=== PATIENT | female | born 1995 | race Hispanic/Latino ===

== ENCOUNTER 2021-08-14 06:38 | Observation (INO) | payer OTHER ==
[2021-08-13 10:11] LABS: Basophils # (Auto) 0.1 K/mm3 (0.0-0.1); Basophils % (Auto) 0.6 % (0.0-1.8); Eosinophils # (Auto) 0.1 K/mm3 (0.0-0.4); Eosinophils % (Auto) 1.2 % (0.0-4.3); Hematocrit 34.4 % (30.3-42.9); Hemoglobin 11.4 gm/dl (10.1-14.3); Lymphocytes # (Auto) 2.4 K/mm3 (1.2-5.4); Lymphocytes % (Auto) 23.5 % (13.4-35.0); Mean Corpuscular HGB Conc 33 % (30-34); Mean Corpuscular Volume 73 fl (79-97); Monocytes # (Auto) 0.4 K/mm3 (0.0-0.8); Monocytes % (Auto) 4.3 % (0.0-7.3); Platelet Count 352 K/mm3 (140-440); Red Blood Count 4.75 M/mm3 (3.65-5.03); Red Cell Distribution Width 17.6 % (13.2-15.2)
--- NOTE | 2021-08-13 15:57 | Anesthesia Consultation ---
Anesthesia Consult and Med Hx Date of service: 08/14/21 - Airway Anesthetic Teeth Evaluation: Crowns ROM Head & Neck: Adequate Mental/Hyoid Distance: Adequate Mallampati Class: Class II Intubation Access Assessment: Probably Good - Pre-Operative Health Status ASA Pre-Surgery Classification: ASA3 Proposed Anesthetic Plan: General Nerve Block: TAP - Pulmonary Hx Smoking: Yes - Central Nervous System Hx Neuromuscular Disorder: Yes (Knee arthritis) Hx Psychiatric Problems: Yes (Anxiety/Depression) - Gastrointestinal Hx Gastroesophageal Reflux Disease: Yes (Occasional; takes pepcid prn) - Endocrine Hx Renal Disease: Yes (Hx stones) - Other Systems Hx Alcohol Use: Yes (Occas) Hx Cancer: No Hx Obesity: Yes (Morbid)
[~2021-08-14 06:38] MED LIST: ACETAMINOPHEN 500 MG TAB PO ONE; BACTERIOSTATIC SODIUM CHLORIDE 0.9% 30 ML VIAL INFILTRATI ONE; CELECOXIB 200 MG CAP PO NR; LACTATED RINGERS 1,000 ML IV SCH; MAGNESIUM OXIDE 400 MG TAB PO ONE; MIDAZOLAM 2 MG/2 ML INJ IV NR; fentaNYL 100 MCG/2 ML INJ IV ONE; methOCARBAMOL 1,000 MG in SODIUM CHLORIDE 0.9% 250ML 250 ML IV ONE
[2021-08-14] MEDS ORDERED: SCOPOLAMINE TRANSDERMAL PATCH 72 HR TD NR (07:00)
[2021-08-14] MEDS ORDERED: LIDOCAINE MPF (2%) 20 MG/1 ML VIAL 5 ML ONE ×2 (07:22→07:28)
[2021-08-14] MEDS ORDERED: ROCURONIUM 50 MG/5 ML INJ IV ONE ×2 (07:22→08:54)
[2021-08-14] MEDS ORDERED: propofoL 200 MG/20 ML VIAL IV ONE (07:23)
[2021-08-14] MEDS ORDERED: ONDANSETRON 4 MG/2 ML INJ ONE (07:23)
[2021-08-14] MEDS ORDERED: fentaNYL 100 MCG/2 ML INJ ONE (07:23)
[2021-08-14] MEDS ORDERED: KETAMINE/STERILE WATER 50 MG/ML SYRINGE ONE (07:23)
[2021-08-14] MEDS ORDERED: SODIUM CHLORIDE 0.9% 0 ML ONE (07:24)
[2021-08-14] MEDS ORDERED: VASOPRESSIN 20 UNIT/1 ML INJ ONE (07:24)
[2021-08-14] MEDS ORDERED: SODIUM CHLORIDE P/F VIAL 10 ML 10 ML ONE (07:28)
[2021-08-14] MEDS ORDERED: dexAMETHasone 4 MG/ML VIAL ONE (07:30)
[2021-08-14] MEDS ORDERED: BUPIVACAINE/PF (0.25%) 2.5 MG/ML 30 ML VIAL INFILTRATI ONE ×2 (07:30→07:38)
--- NOTE | 2021-08-14 07:32 | Anesthesia Day of Surgery ---
Anesthesia Day of Surgery - Day of Surgery Patient Examined: Yes Patient H&P Reviewed: Yes Patient is NPO: Yes
[2021-08-14] MEDS ORDERED: MIDAZOLAM 5 MG/5 ML INJ MDV IV ONE (07:37)
[2021-08-14] MEDS ORDERED: HYDROmorphone 1 MG/1 ML INJ IV PRN (07:58)
[2021-08-14] MEDS ORDERED: CITRIC ACID-SOD CITRATE 500 ML IV ONE (08:00)
[2021-08-14] MEDS ORDERED: ePHEDrine SULFATE 50 MG/1 ML INJ ONE (08:32)
[2021-08-14] MEDS ORDERED: PHENYLEPHRINE/NS 1,000 MCG/10 ML SYRINGE (OR USE) IV ONE (08:38)
[2021-08-14] MEDS ORDERED: ONDANSETRON 4 MG/2 ML INJ IV PRN (09:00)
[2021-08-14] MEDS ORDERED: SODIUM CHLORIDE 0.9% IRR 1,500 ML BOTTLE IR ONE (09:00)
[2021-08-14] MEDS ORDERED: LACTATED RINGERS 1,000 ML ONE (09:42)
[2021-08-14] MEDS ORDERED: KETOROLAC 30 MG/1 ML INJ ONE (11:35)
[2021-08-14] MEDS ORDERED: NEOSTIGMINE 10MG/10 ML INJ MDV ONE (11:35)
[2021-08-14] MEDS ORDERED: GLYCOPYRROLATE 0.4 MG/2 ML INJ ONE ×2 (11:35)
[2021-08-14] MEDS ORDERED: HYDROcodone/ACETAMINOPHEN 5-325 MG TAB PO PRN (11:58)
[2021-08-14] MEDS ORDERED: MORPHINE 4 MG/1 ML INJ IV PRN (11:58)
[2021-08-14] MEDS ORDERED: ACETAMINOPHEN 325 MG TAB PO PRN (11:58)
--- NOTE | 2021-08-14 12:13 | Procedure Note ---
Date of procedure: 08/14/21 Pre-op diagnosis: fibroid uterus, menorrhagia Post-op diagnosis: same Procedure: This is Dr. Santana dictating operative report on the patient. Surgeon Dr. Santana. Thai Masseur Dr. Zahira Rod. Time of surgery was 3 hours. Procedure was robotic laparoscopic myomectomy. Anesthesia General with intubation. Drains Bolton. Complications none. Specimen fibroid. Estimated blood loss 100 cc. Procedure patient was taken to the OR and given a general anesthetic with intubation placed in the [facility] stirrups and prepped and draped in usual manner had an indwelling Bolton catheter we could not adequately manipulate her cervix because of her nulliparity so we placed a sponge on a stick in the vagina attention was directed towards the laparoscopy portion procedure versus skin just above the umbilicus was injected with Xylocaine. Made a small stab incision inserted Veress needle into the peritoneal cavity 2 L of carbon dioxide were used to obtain pneumoperitoneum. We then made a bigger incision inserted the 12 mm trocar under direct visualization without trauma to the pelvic abdominal structures we then placed our robotic port 7 mm in the right lower quadrant left lower quadrant under direct visualization without trauma to the pelvic structures we then docked the patient to the robot. An excess report of 5 mm was inserted in the left upper quadrant direct visualization out from no other pelvic abdominal structures through this access report we inserted the laparoscopic tenaculum. The insufflation technique for this procedure was a procedure where the pneumoperitoneum was maintained by the device external to the patient. We then docked with the robot using unipolar scissors and #1 and atraumatic grasper and #2. The tenaculum through the port was used to grasp the posterior aspect of the uterus there was a myoma on the dome and posterior aspect of the uterus we then made an incision with unipolar scissors on the posterior aspect of the uterus and we manipulated the uterus with the with a laparoscopic tenaculum until we were able to completely extract the fibroid from the posterior aspect of the uterus patient had 100 cc blood loss the specimen was placed in the lower area just behind the uterus the incision into the to the uterus was repaired with a running V lock 180 suture completely across and back 3 sutures to make sure the suture was tied into the uterus well. There was no bleeding at the end of the procedure tubes and ovaries appeared to be fine. We then undocked the patient from the robot and using Endopouch through the visual port we placed Endopouch the fibroid was then placed inside the Endopouch and removed with the help of expanding the skin incision at the elbow above the umbilicus and the fascia and removed intact in toto and sent for pathological inspection. All instruments were removed from abdominal cavity the insufflation for this procedure was however flow. See no further procedures were indicated the skin incision at just above the umbilicus for the visual port was repaired using 0 Vicryl suture to repair the fascia and subcutaneous tissue and the skin was repaired running two 4-0 Vicryl the other 4 skin incision was repaired running subcuticular 4-0 Vicryl and drape with Dermabond the sponge stick was removed from the vagina Bolton was removed from the bladder the patient tolerated procedures well the skin incision was covered with Dermabond she was then returned turned to the recovery room in stable condition end of operative note on this patient. Anesthesia: GETA Surgeon: HARPREET SANTANA Thai Masseur: ZAHIRA ROD Estimated blood loss: other (100ccs) Pathology: list Specimen disposition: to lab (myoma) Condition: stable Disposition: PACU
[2021-08-14] MEDS: HYDROmorphone 1 MG/1 ML INJ IV PRN ×2 (12:20→12:30)
--- NOTE | 2021-08-14 14:11 | Post Anesthesia Evaluation ---
- Post Anesthesia Evaluation Patient Participated: Yes Airway Patent: Yes Stable Respiratory Function: Yes Nausea/Vomiting: No Temp > 96.8F: Yes Pain Manageable: Yes Adequeate Hydration: Yes Anesthesia Complications: No Block Receding Appropriately: Yes Patient on Ventilator: No
--- NOTE | 2021-08-14 15:33 | Short Stay Summary ---
Short Stay Documentation Date of service: 08/14/21 Narrative H&P: see h&p. - History Past Medical History: No medical history Past Surgical History: No surgical history Social history: single - Allergies and Medications Current Medications: Allergies No Known Allergies Allergy (Unverified 08/10/21 15:38) Active Medications Acetaminophen (Acetaminophen 325 Mg Tab) 650 mg PO Q4H PRN PRN Reason: Pain, Mild (1-3) Hydrocodone Bitart/Acetaminophen (Hydrocodone/Acetaminophen 5-325 Mg Tab) 2 each PO Q6H PRN PRN Reason: Pain, Moderate (4-6) Celecoxib (Celecoxib 200 Mg Cap) 400 mg PO PREOP NR Stop: 08/14/21 23:00 Last Admin: 08/14/21 07:10 Dose: 400 mg Documented by: Hydromorphone HCl (Hydromorphone 1 Mg/1 Ml Inj) 0.25 mg IV Q10MIN PRN PRN Reason: Pain, Moderate (4-6) Stop: 08/14/21 22:00 Hydromorphone HCl (Hydromorphone 1 Mg/1 Ml Inj) 0.5 mg IV Q10MIN PRN PRN Reason: Pain , Severe (7-10) Stop: 08/14/21 23:00 Last Admin: 08/14/21 12:30 Dose: 0.5 mg Documented by: Lactated Ringer's (Lactated Ringers) 1,000 mls @ 125 mls/hr IV DIRECT RADHA Last Admin: 08/14/21 07:05 Dose: 125 mls/hr Documented by: Midazolam HCl (Midazolam 2 Mg/2 Ml Inj) 2 mg IV PREOP NR Stop: 08/14/21 23:59 Last Admin: 08/14/21 07:05 Dose: 2 mg Documented by: Morphine Sulfate (Morphine 4 Mg/1 Ml Inj) 4 mg IV Q4H PRN PRN Reason: Pain , Severe (7-10) Scopolamine (Scopolamine Transdermal Patch 72 Hr) 1 each TD PREOP NR Stop: 08/14/21 20:00 Last Admin: 08/14/21 07:15 Dose: 1 each Documented by: - Physical exam General appearance: no acute distress Integumentary: no rash HEENT: Atraumatic Lungs: Clear to auscultation Breasts: deferred, normal Heart: Regular rate, Normal S1, Normal S2 Gastrointestinal: normal, normoactive bowel sounds Female Genitourinary: normal Rectal Exam: deferred Extremities: no ischemia Neurological: Normal gait - Brief post op/procedure progress note Date of procedure: 08/14/21 Pre-op diagnosis: fibroid uterus, menorrhagia Post-op diagnosis: same Procedure: robotic laparoscopic myomectomy. Anesthesia: GETA Findings: large posterior subserosal myoma. Surgeon: HARPREET NOYOLA Health Information Tech: ZAHIRA ROD Estimated blood loss: other (100 CCS) Pathology: list (FIBROID) Specimen disposition: to lab - Disposition Condition at discharge: Good Disposition: 01 HOME / SELF CARE / HOMELESS - Discharge Diagnoses (1) Fibroid uterus Status: Acute Qualifiers: Uterine leiomyoma location: subserous Qualified Code(s): D25.2 - Subserosal leiomyoma of uterus (2) Menorrhagia Status: Chronic Qualifiers: Menorrhagia type: with regular cycle Qualified Code(s): N92.0 - Excessive and frequent menstruation with regular cycle Short Stay Discharge Plan Follow up with: PRIMARY MD JIAN [Primary Care Provider] - 7 Days
[2021-08-14 19:54] VITALS: BP 112/61
== END 2021-08-14 20:25 | disposition home or self-care (01) ==
LOC: OR 06:38 → OB 12:01
DX: D25.1 Intramural leiomyoma of uterus (principal); Z20.822 Contact with and (suspected) exposure to COVID-19; N92.0 Excessive and frequent menstruation with regular cycle; Z98.890 Other specified postprocedural states; Z79.899 Other long term (current) drug therapy
CPT/HCPCS: 36415; 58545; 64450; 84703; 85025; 86850; 86900; 86901; 88305; G0378; J0690; J1100; J1170; J1885; J2250; J2370; J2405; J2704; J2710; J2800; J3010; J3490; J7050; J7120; S2900; U0003